=== PATIENT | female | born 1995 | race Caucasian/White ===

== ENCOUNTER → 2018-03-17 15:30 | Outpatient (REF) | payer BC, SELFPAY ==
[2018-03-17 19:37] LABS: Abs Immature Grans 0.01 k/cumm (0.0-0.09); Absolute Basophil Count 0.04 k/cumm (0.0-0.2); Absolute Eosinophil Count 0.02 k/cumm (0.0-0.7); Absolute Lymphocyte Count 1.43 k/cumm (1.2-3.4); Absolute Monocyte Count 0.63 k/cumm (0.11-0.7); Absolute Neutrophil Count 6.33 k/cumm (1.2-6.7); Basophils % 0.5; Eosinophils % 0.2; HCT 36.8 % (36.0-46.0); HGB 12.1 g/dL (12.0-15.5); Immature Grans % 0.1; Lymphocytes % 16.9; Mean Corp. HGB Concentration 32.9 g/dL (32.0-36.0); Mean Corpuscular Hemoglobin 30.2 pg (27.0-33.0); Mean Corpuscular Volume 91.8 fL (80-95); Mean Platelet Volume 12.1 fL (8.0-11.0); Monocytes % 7.4; Neutrophils % 74.9; Platelet Count 204 x1000/uL (130-400); RBC 4.01 m/cumm (4.00-5.20); RBC Distribution Width 13.5 % (11.7-14.6); White Blood Cell Count 8.46 k/cumm (4.4-10.8)
[2018-03-17 19:54] LABS: ALT 17 U/L (12-78); AST 14 U/L (15-37); Albumin 4.2 g/dL (3.4-5.0); Alkaline Phosphatase 68 U/L (46-116); Anion Gap 9.6 mmol/L (3-11); BUN 14 mg/dL (7-18); Bilirubin, Total 0.6 mg/dL (0.2-1.0); CO2 24.4 mmol/L (21.0-32.0); CREATININE 0.67 mg/dL (0.55-1.02); Calcium 8.8 mg/dL (8.5-10.1); Chloride 105 mmol/L (98-107); Glucose 86 mg/dL (70-100); Potassium 3.9 mmol/L (3.5-5.1); Sodium 139 mmol/L (136-145); TSH (W/Ref FT4) 1.03 uIU/mL (0.358-3.74); Total Protein 7.3 g/dL (6.4-8.2)
[2018-03-17 22:16] LABS: HCG Qual (Serum) Negative
[2018-03-19 09:31] LABS: IgA 144 mg/dL (85-499)
[2018-03-19 18:06] LABS: Tissue Transglutaminase Ab IgA <1.2 U/mL
== END ==
LOC: NCHCN 15:30
PROVIDERS: PCP Family Medicine; Visit Provider Family Medicine
DX: R11.2 Nausea with vomiting, unspecified (principal)
CPT/HCPCS: 80053; 82784; 83516; 84443; 84703; 85025

== ENCOUNTER 2021-03-20 16:13 | Outpatient (REF) | payer BC, SELFPAY ==
--- NOTE | 2021-03-20 13:45 | PAPFT_PTH ---
PATIENT: Stacey Wang LOC: [facility] U#:[id number] AGE/SX: 25/F ROOM: RE03/20/[address]: Tammy Barron : 1995 BED: DIS: 03/20/2021 SPEC #: [id number] RECD: 03/21/21 12:46 STATUS: RAUL REJoseph #: [id number] JASPAL: 03/20/21 13:[address]: Tammy Barron DEPT: [facility] Cytology RECD BY: Mary Mackey Tissues: 1 - CX/ENDOCX FOR PAP SMEARS Procedures: PAP THIN PREP/[facility] Screening Comments: [id number] (CHLAMYDIA/GC)
[2021-03-22 15:36] LABS: Chlamydia Result Negative (Negative); GC Result Negative (Negative)
== END 2021-03-20 16:14 | disposition home or self-care (01) ==
LOC: LBN 16:13
PROVIDERS: PCP Family Medicine; Visit Provider Family Medicine
DX: Z00.00 Encounter for general adult medical examination without abnormal findings (principal); Z12.4 Encounter for screening for malignant neoplasm of cervix; Z11.3 Encounter for screening for infections with a predominantly sexual mode of transmission
CPT/HCPCS: 87491; 87591; 88142

== ENCOUNTER 2024-10-14 14:04 | Outpatient (REF) | payer OTHER, SELFPAY ==
--- NOTE | 2024-10-14 11:00 | PAPFT_PTH ---
PATIENT: Stacey Wang LOC: [facility] U#:[id number] AGE/SX: 28/F ROOM: RE10/14/[address]: Tammy Barron : 1995 BED: DIS: 10/14/2024 SPEC #: [id number] RECD: 10/17/24 13:26 STATUS: RAUL REJoseph #: [id number] JASPAL: 10/14/24 11:[address]: Tammy Barron DEPT: [facility] Cytology RECD BY: Mary Mackey Tissues: 1 - CX/ENDOCX FOR PAP SMEARS Procedures: PAP THIN PREP/[facility] Screening Comments: [id number]
[2024-10-14 22:00] LABS: TSH 1.25 uIU/mL (0.36-3.74)
[2024-10-15 22:19] LABS: T4, Free 0.9 ng/dL (0.8-2.2)
[2024-10-16 10:31] LABS: HIV-1/2 Ag & Ab Screen Negative (Negative)
[2024-10-17 13:27] LABS: Hepatitis C Ab w Rflx HCV PCR Negative (Negative)
== END 2024-10-14 14:05 | disposition home or self-care (01) ==
LOC: NCHCN 14:04
PROVIDERS: PCP Family Medicine; Visit Provider Family Medicine
DX: Z12.4 Encounter for screening for malignant neoplasm of cervix (principal); Z00.00 Encounter for general adult medical examination without abnormal findings; R63.5 Abnormal weight gain; Z01.419 Encounter for gynecological examination (general) (routine) without abnormal findings
CPT/HCPCS: 86803; 87389; 88142; 84439; 84443

== ENCOUNTER 2025-07-31 19:44 | Emergency (ER) | payer SELFPAY ==
[2025-07-31 19:54] VITALS: BP 118/79; PULSE 96; RESP 16; O2SAT 99
--- NOTE | 2025-07-31 20:00 | RT.EKG_ITS ---
APPROVED REPORT Exam: Resting ECG Reason for Exam: dizziness Patient Location: E HR:75 bpm ECG Measurements Heart Rate 75 AXIS WY 148 P 54 QRSd 98 QRS 43 QT 476 T 41 QTc 532 Conclusion Sinus rhythm...normal P axis, V-rate 60- 99 Prolonged QT interval...QTc >495mS
--- NOTE | 2025-07-31 20:06 | W.ED.GENAD ---
Discharge Plan Disposition Patient Disposition: Home Condition: Stable Discharge Details Clinical Impression: Dizziness, Vomiting Primary Care Provider: Tammy Barron ED Provider: Santos Arellano Home Meds and New Rx's Prescriptions: New meclizine 25 mg tablet 25 mg PO BID PRN (Reason: dizziness) Qty: 30 0RF Continued desipramine [Norpramin] 25 MG tablet 25 mg PO DAILY sertraline 100 mg tablet 100 mg PO DAILY Patient Comments: TAKE ONE TABLET BY MOUTH EVERY DAY Discharge Instructions Instructions: Vertigo ED Additional Instructions: Your blood work did not show emergent findings. You are likely suffering from benign positional vertigo which usually resolves over the course of a few days. If you are not improving within 1 week follow up with your primary care provider. If you feel more ill, have high fevers or difficulty breathing return to the emergency department Stand Alone Forms: Portal Information HPI General Mode of arrival: wheelchair. Date/Time Provider Initiated Documentation: 07/31/25 19:45. Limitations to Documentation: no limitations. Information obtained by: patient. History of Present Illness 29 year old F presents to the emergency department with the chief complaint of n/v, dizziness, described as moderate, Patient started experiencing this hour(s) (2) and it has been constant. No relieving factors improve symptom(s), No exacerbating factors reported . Patient notes denies chest pain and fever/chills. Patient did receive the following treatments prior to arrival, none Related Data Home Medications ?Medication ?Instructions ?Recorded ?Confirmed desipramine 25 mg tablet 25 mg PO DAILY 11/04/14 07/31/25 (Norpramin) meclizine 25 mg tablet 25 mg PO BID PRN dizziness #30 tabs 07/31/25 sertraline 100 mg tablet 100 mg PO DAILY 07/31/25 07/31/25 Previous Rx's ?Medication ?Instructions ?Recorded meclizine 25 mg tablet 25 mg PO BID PRN dizziness #30 tabs 07/31/25 Allergies Allergy/AdvReac Type Severity Reaction Status Date / Time No Known Allergies Allergy Unverified 07/31/25 19:59 General Stated Complaint: Dizzy/Sync DESIREE: 3 Review of Systems All systems reviewed & are unremarkable except as noted in HPI and below Constitutional Constitutional: Denies chills, Denies fever(s) and Denies weakness ENT Ears, Nose, Mouth, and Throat: Reports dizziness Cardiovascular Cardiovascular: Denies chest pain and Denies dyspnea Respiratory Respiratory: Denies cough and Denies dyspnea Gastrointestinal Gastrointestinal: Denies abdominal pain, Reports nausea and Reports vomiting Neurologic Neurologic: Reports dizziness and Denies weakness Exam Const General: no acute distress Orientation: alert [facility] Head: normal to inspection Ears: external ears normal General nose exam: external nose normal Mouth: moist mucous membranes Eyes General: appearance normal, both eyes and all related structures Neck Neck: normal visual inspection Resp Effort & Inspection: normal respiratory effort and able to speak in complete sentences Auscultation: clear to auscultation bilaterally Cardio Jugular venous pressure: no JVD Rate: regular rate Heart Sounds: no murmurs GI Palpation: soft and nontender Skin General skin exam: no rashes or lesions noted Neuro General: patient alert and patient oriented x3 Extrem General: normal to inspection Psych Mental Status: mental status grossly normal Course Vital Signs Vital signs: Vital Signs Pulse 96 H 07/31/25 19:54 Respiratory Rate 16 07/31/25 19:54 Blood Pressure 118/79 07/31/25 19:54 Pulse Oximetry 99 07/31/25 19:54 Pulse 96 H 07/31/25 19:54 Respiratory Rate 16 07/31/25 19:54 Blood Pressure 118/79 07/31/25 19:54 Blood Pressure Position Sitting 07/31/25 19:54 Pulse Oximetry 99 07/31/25 19:54 Oxygen Delivery Method Room Air 07/31/25 19:54 Oxygen Flow Rate 0 07/31/25 19:54 Medical Decision Making 29-year-old female who denies any chronic medical problems, is on sertraline for anxiety, denies any drug use, comes in with acute onset nausea vomiting and feeling dizzy starting around 6:00 tonight. She says she had felt well all day during the day. Denies any fevers, chest pain, abdominal pain, severe headaches, no neck stiffness or neck pain. She is stable on arrival, she is moving all extremities equally. She has no drift. Pupils are equal and reactive to light, cranial nerves II through XII are intact. She has no meningismus. Her abdomen is soft and nontender. Unclear etiology for symptoms, she has no neurological deficits on exam so I doubt acute CVA. I will check a CBC CMP troponins, treat her symptoms with fluids and antiemetic and reassess. Given lack of abdominal tenderness I doubt surgical pathology such as small bowel obstruction. Patient with mild leukocytosis but has not had any fevers or infectious symptoms. Denies any urinary symptoms. Delta troponin negative. She feels mildly improved though still feels mild dizziness. Suspect she could be having peripheral vertigo, she has no deficits on neurological exam so I doubt central CVA I do not feel imaging of her head is indicated. She is stable for discharge and will follow-up with her PCP if not improving and return precautions given. Differential Diagnosis Differential Diagnosis: vertigo, gastroenteritis, electrolyte abnormality ECG Data Attestation: I personally reviewed and interpreted this ECG (s) as follows: Prior ECG tracings: not available for review Interpretation: sinus rate of 75, motion artifact, pr 148 qtc 532 no stemi PFSH All Active Problems (Updated 07/31/25 @ 21:29 by Santos Arellano MD) Vomiting (Acute) Dizziness (Acute) Social History Smoking/Tobacco Use Status: Never Smoking risk assessment performed?: Yes Alcohol Intake: never Drug use: Never
[2025-07-31 20:07] VITALS: RESP 16
[2025-07-31] MEDS: Prochlorperazine 10 MG/2 ML VIAL IVP (20:39)
[2025-07-31] MEDS: Normal Saline 1,000 ML 1000 ML IV ×2 (20:39→21:35)
[2025-07-31 20:44] LABS: Abs Immature Grans 0.08 10^3/uL (0.0-0.06); HCT 34.7 % (36.0-46.0); HGB 11.6 g/dL (11.2-15.7); Immature Grans % 0.5 %; MCH 29.1 pg (27.0-33.0); MCHC 33.4 % (32.0-36.0); MCV 87 fL (80-95); MPV 11.3 fL (8.0-11.0); Platelet Count 232 10^3/uL (130-400); RBC 3.98 10^6/uL (3.93-5.22); RDW 12.9 % (11.7-14.6); RDW-SD 41.0 fL; WBC 14.81 10^3/uL (4.4-10.8)
[2025-07-31 20:53] LABS: Magnesium 2.1 mg/dL (1.6-2.6)
[2025-07-31 20:55] LABS: ALT 11 U/L (10-49); AST 20 U/L (<34); Albumin 4.3 g/dL (3.2-5.0); Alkaline Phosphatase 58 U/L (46-116); Anion Gap 12.7 mmol/L (3-11); BUN 11 mg/dL (9-23); Bilirubin, Total 0.4 mg/dL (0.2-1.2); CO2 19.3 mmol/L (20.0-31.0); Calcium 8.5 mg/dL (8.3-10.6); Chloride 110 mmol/L (98-107); Glucose 158 mg/dL (74-106); HCG Qual (Serum) Negative; Potassium 3.4 mmol/L (3.5-5.1); Sodium 142 mmol/L (136-145); Total Protein 7.3 g/dL (5.7-8.2)
[2025-07-31 20:58] LABS: TSH (W/Ref FT4) 2.20 uIU/mL (0.55-4.78)
[2025-07-31 20:59] LABS: Troponin I < 3 ng/L (<35)
[2025-07-31 21:34] LABS: COVID-19 PCR Negative (Negative); RSV PCR Negative (Negative)
[2025-07-31] MEDS: LORazepam 2 MG/ML VIAL 1 MG IVP (21:35)
[2025-07-31 21:40] VITALS: PULSE 82; TEMP 35.8
[2025-07-31 21:43] VITALS: BP 123/77; PULSE 82; RESP 16; TEMP 35.8; O2SAT 99
[2025-07-31 21:51] LABS: Troponin I < 3 ng/L (<35)
--- NOTE | 2025-07-31 22:11 | NUR.NOTE ---
Attempted to get urine upon arrival, attempted to get urine post 1 liter of fluid, attempted once again to get urine, pt assisted to bedside commode but unable to urinate, JEFE
[2025-07-31] MEDS: Meclizine 25 MG TAB PO (22:32)
[2025-07-31 23:23] VITALS: BP 114/73; PULSE 86; RESP 16; O2SAT 100
== END 2025-07-31 23:24 | disposition home or self-care (01) ==
LOC: ER 22:25
PROVIDERS: Emergency Provider Emergency Medicine; PCP Family Medicine
DX: R42 Dizziness and giddiness (principal); R11.2 Nausea with vomiting, unspecified
CPT/HCPCS: 36415; 80053; 87637; 93005; 96361; 96374; 96375; 99284; 83735; 84443; 84484; 84703; 85025; 93010; J0780; J2060